=== PATIENT | female | born 1960 | race Caucasian/White ===

== ENCOUNTER → 2017-12-29 15:16 | Outpatient (CLI) | payer OTHER, SELFPAY ==
--- NOTE | 2017-12-29 15:19 | DI.MG.S_ITS ---
BILATERAL DIGITAL SCREENING MAMMOGRAM 3D/2D WITH CAD: 12/29/2017 CLINICAL: Routine screening. Family history of breast cancer. Comparison is made to exams dated: 10/03/2016 mammogram - [facility] and 03/06/2015 mammogram - [facility] The tissue of both breasts is heterogeneously dense. This may lower the sensitivity of mammography. Current study was also evaluated with a Computer Aided Detection (CAD) system. No significant masses, calcifications, or other findings are seen in either breast. There has been no significant interval change. IMPRESSION: NEGATIVE There is no mammographic evidence of malignancy. A 1 year screening mammogram is recommended. This exam was interpreted at Station ID: [id number]. NOTE: For mammograms, a report in lay terms will be sent to the patient. Approximately 15% of breast malignancies will not be visualized mammographically. In the management of a palpable breast mass, a negative mammogram must not discourage biopsy of a clinically suspicious lesion. Electronically Signed By: Eleonora mccain/melvin:12/29/2017 15:52:51 copy to: KRSITOFER CRAWFORD letter sent: Normal Exam ACR BI-RADS Category 1: Negative 3341F
== END ==
PROVIDERS: PCP Family Medicine
DX: Z12.31 Encounter for screening mammogram for malignant neoplasm of breast (principal); Z80.3 Family history of malignant neoplasm of breast
CPT/HCPCS: 77063; 77067

== ENCOUNTER → 2018-04-02 09:49 | Outpatient (CLI) | payer OTHER, SELFPAY ==
[2018-04-02 10:57] LABS: Add Manual Diff / Slide Review NO; Basophils Percent Auto 0.9 % (0-2); Eosinophils Percent Auto 0.7 % (2-4); Hematocrit 41.4 % (36-46); Hemoglobin 13.7 g/dL (12.0-16.0); Lymphocytes Percent Auto 43.2 % (25-40); Mean Corpuscular HGB Conc 33.2 % (30-36); Mean Corpuscular Hemoglobin 31.4 PG (26-34); Mean Corpuscular Volume 94.7 fL (80-100); Monocytes Percent Auto 10.1 % (3-14); Neutrophils Absolute Auto 2300 /uL (3000-5900); Neutrophils Percent Auto 45.1 % (50-75); Platelet Count 295 X10^3/uL (150-400); Red Blood Cell Count 4.37 X10^6/uL (4.0-5.2); Red Cell Distribution Width 13.5 % (11.6-14.8); White Blood Cell Count 5.2 X10^3/uL (4.5-11.0)
[2018-04-02 11:13] LABS: BUN Creatinine Ratio 27.1 (6-22); Blood Urea Nitrogen 19 mg/dL (7-17); Calcium 9.3 mg/dL (8.4-10.2); Carbon Dioxide 33 mmol/L (22-32); Chloride 104 mmol/L (98-107); Estimated Glomerular Filt Rate > 60.0 mL/min (>60); Glucose 69 mg/dL (70-100); HEMOLYSIS < 15 (0-50); Potassium 4.7 mmol/L (3.4-5.1); Sodium 142 mmol/L (137-145)
[2018-04-02 11:17] LABS: HEMOLYSIS < 15 (0-50); Iron 117 ug/dL (37-170)
[2018-04-02 11:29] LABS: Percent Iron Saturation 39 % (15-50); Total Iron Binding Capacity 297 ug/dL (265-497); Transferrin 253 mg/dL (206-381)
[2018-04-02 11:44] LABS: Ferritin 81.5 ng/mL (11.1-264); Testosterone 12.3 ng/dL (5.71-77.0)
[2018-04-02 13:51] LABS: TSH w/ Reflex to FT4 0.46 uIU/mL (0.47-4.68)
[2018-04-02 14:27] LABS: Free T4, Direct Thyroxine 1.28 ng/dL (0.78-2.19)
== END ==
PROVIDERS: PCP Family Medicine; Visit Provider Family Medicine
DX: E03.9 Hypothyroidism, unspecified (principal); L65.9 Nonscarring hair loss, unspecified
CPT/HCPCS: 36415; 80048; 82728; 83540; 83550; 84403; 84439; 84443; 85025

== ENCOUNTER → 2018-04-20 09:32 | Outpatient (CLI) | payer OTHER, SELFPAY ==
--- NOTE | 2018-04-20 | DI.MRI.S_ITS ---
PROCEDURE: MR SHOULDER RT WO CON INDICATIONS: IMPINGEMENT SYNDROME OF RIGHT SHOULDER TECHNIQUE: Noncontrast oblique coronal T2 fast spin echo with fat saturation, oblique sagittal T1 spin echo and T2 fast spin echo with fat saturation, axial T1 spin echo and T2 fast spin echo with fat saturation through the shoulder. COMPARISON: None. FINDINGS: Image quality: Excellent. Rotator cuff: Infraspinatus thickening and intrasubstance signal change. There is low grade articular surface fraying. There is also interstitial tearing which appears to extend to the musculotendinous junction Teres minor appears intact. Supraspinatus appears grossly intact. The subscapularis appears grossly intact. No atrophy of the rotator cuff musculature Bones and bursae: No bone marrow contusions or fractures. Mild acromioclavicular joint degeneration. The acromion demonstrates conventional anatomy, without an os acromiale. Lateral downsloping appearance of the acromion. Trace subacromial/subdeltoid bursitis. Incidental fluid seen within the subscapular recess Capsule and soft tissues: There is hypertrophy appearance with intrasubstance signal change involving anterior and posterior labrum, suggestive of chronic labral tear in these locations. There is an ill-defined superior labral tear. The anterior labrum appears blunted The long head of the biceps tendon demonstrates normal location and morphology. The rotator interval appears normal, without fibrosis. The coracohumeral ligament is normal in thickness. IMPRESSION: Infraspinatus tendinopathy and interstitial tearing extending to the musculotendinous junction, in addition to low grade articular surface fraying. Circumferential labral tear as detailed above, probably chronic. Please correlate clinically. Glenohumeral and acromioclavicular joint degeneration. Trace subacromial/subdeltoid bursitis. Dictated by: Volodymyr Gonsales M.D. on 04/20/2018 at 10:17 Approved by: Volodymyr Gonsales M.D. on 04/20/2018 at 10:30
== END ==
PROVIDERS: PCP Family Medicine; Visit Provider Orthopaedic Surgery
DX: M75.41 Impingement syndrome of right shoulder (principal); M19.011 Primary osteoarthritis, right shoulder; S43.491A Other sprain of right shoulder joint, initial encounter
CPT/HCPCS: 73221

== ENCOUNTER → 2018-11-19 09:54 | Outpatient (CLI) | payer OTHER, SELFPAY ==
[2018-11-19 11:32] LABS: Free T3, Triiodothyronine Free 3.15 pg/mL (2.77-5.27); Free T4, Direct Thyroxine 1.18 ng/dL (0.78-2.19)
[2018-11-19 11:45] LABS: Thyroid Stimulating Hormone 0.43 uIU/mL (0.47-4.68)
[2018-11-21 14:26] LABS: Thyroid Peroxidase Antibodies 2 IU/mL (< 9)
[2018-11-23 14:41] LABS: Triiodothyronine T3 Reverse 14 ng/dL (8-25)
== END ==
PROVIDERS: PCP Family Medicine; Visit Provider Family Medicine
DX: E03.9 Hypothyroidism, unspecified (principal)
CPT/HCPCS: 36415; 84439; 84443; 84481; 84482; 86376

== ENCOUNTER → 2018-12-12 09:52 | Outpatient (CLI) | payer OTHER, SELFPAY ==
--- NOTE | 2018-12-12 09:54 | DI.MG.S_ITS ---
BILATERAL DIGITAL SCREENING MAMMOGRAM 3D/2D WITH CAD: 12/12/2018 CLINICAL: Routine screening. Family history of breast cancer. Comparison is made to exams dated: 12/29/2017 mammogram, 10/03/2016 mammogram - [facility], and 03/06/2015 mammogram - [facility] Current study was also evaluated with a Computer Aided Detection (CAD) system. No significant masses, calcifications, or other findings are seen in either breast. There has been no significant interval change. IMPRESSION: NEGATIVE There is no mammographic evidence of malignancy. A 1 year screening mammogram is recommended. This exam was interpreted at Station ID: [id number]. NOTE: For mammograms, a report in lay terms will be sent to the patient. Approximately 15% of breast malignancies will not be visualized mammographically. In the management of a palpable breast mass, a negative mammogram must not discourage biopsy of a clinically suspicious lesion. Electronically Signed By: Eleonora mccain/melvin:12/12/2018 14:10:50 copy to: KRISTOFER CRAWFORD letter sent: Normal Exam ACR BI-RADS Category 1: Negative 3341F
== END ==
PROVIDERS: PCP Family Medicine; Visit Provider Family Medicine
DX: Z12.31 Encounter for screening mammogram for malignant neoplasm of breast (principal); Z80.3 Family history of malignant neoplasm of breast; Z78.0 Asymptomatic menopausal state
CPT/HCPCS: 77063; 77067; 77080